=== PATIENT | female | born 1960 | race Caucasian/White ===

== ENCOUNTER 2023-11-15 15:08 | Inpatient (IN) | payer BC ==
[2023-11-15] MEDS ORDERED: Acetaminophen 325 MG TAB PO PRN (16:48)
[2023-11-15] MEDS ORDERED: traMADol HCl 50 MG TAB PO PRN (16:48)
[2023-11-15 17:13] VITALS: BMI 23.8
[2023-11-15] MEDS: Rosuvastatin 10 MG TAB PO SCH (20:45)
[2023-11-15] MEDS: Cyclobenzaprine 10 MG TAB PO PRN (20:46)
[2023-11-15] MEDS: Senokot S 8.6-50 MG TAB PO SCH (20:46)
[2023-11-15] MEDS: Trospium 20 MG TAB PO SCH (20:46)
[2023-11-15] MEDS: Acetaminophen/Codeine 30-300mg Tablet PO SCH (20:47)
[2023-11-16] MEDS: Aspirin 325 MG TAB PO SCH (08:47)
[2023-11-16] MEDS: Venlafaxine XR 37.5 MG CAP PO SCH (08:47)
[2023-11-16] MEDS: Ezetimibe 10 MG TAB PO SCH (08:47)
[2023-11-16] MEDS: Enoxaparin 40 MG (0.4 mL) SYRINGE SC SCH (08:48)
[2023-11-17] MEDS: Ferrous Gluconate 324 MG TAB PO SCH (14:57)
[2023-11-18] MEDS: Ferrous Gluconate 324 MG TAB PO SCH (08:38)
[2023-11-20 05:15] LABS: Hematocrit 34.5 % (36.0-47.0); Hemoglobin 11.4 g/dL (12.0-16.0); Platelet Count 404 10x3/uL (130-400)
[2023-11-23] MEDS: Acetaminophen/Codeine 30-300mg Tablet PO SCH (12:07)
[2023-11-23 16:11] VITALS: BP 133/74; TEMP 98
== END 2023-11-23 17:30 | disposition home or self-care (01) | DRG 561 ==
LOC: MADMS 15:32
PROVIDERS: ADMIT Family Medicine; ATTEND Family Medicine
DX: S52.91XD Unspecified fracture of right forearm, subsequent encounter for closed fracture with routine healing (principal); S72.009D Fracture of unspecified part of neck of unspecified femur, subsequent encounter for closed fracture with routine healing; R53.81 Other malaise; I10 Essential (primary) hypertension; E78.5 Hyperlipidemia, unspecified; Z79.899 Other long term (current) drug therapy; Z79.82 Long term (current) use of aspirin; F41.9 Anxiety disorder, unspecified; F32.A Depression, unspecified; Z98.890 Other specified postprocedural states; D64.89 Other specified anemias; W18.30XD Fall on same level, unspecified, subsequent encounter
CPT/HCPCS: 36415; 82565; 85014; 85018; 85049; J1650